=== PATIENT | female | born 1980 | race Caucasian/White ===

== ENCOUNTER → 2017-05-13 | Outpatient (CLI) | payer BC, OTHER ==
[~2017-05-13] MED LIST: ALPR0.5T PO; CIPR-225 PO; IBUP-15 PO; LACT1CAP64 PO; OMEP20CA12 PO; ONDA4TAB8 PO; OXYC-197 PO; SERT25TA PO; SUCR1TAB36 PO
--- NOTE | 2017-05-13 08:29 | Diagnostic Imaging Report ---
Bilateral screening mammogram 2D views with tomosynthesis The current study was also evaluated with a Computer Aided Detection (CAD) system. INDICATION: Screening. No current complaints stated on the questionnaire. COMPARISON: 03/24/15 FINDINGS: The breasts are composed of scattered fibroglandular densities. There are no masses, architectural distortion or suspicious cluster of calcification. IMPRESSION: No mammographic evidence of malignancy and no change from the previous. Ultrasound evaluation pending. ACR BI-RADS Category 0: Incomplete. (Needs additional imaging evaluation). Result letter will be mailed to the patient. Note: At least 10% of breast cancer is not imaged by mammography. Dictated by: Dictated on workstation # [id number]
--- NOTE | 2017-05-13 09:13 | Diagnostic Imaging Report ---
EXAMINATION: Bilateral breast ultrasound. INDICATION: Bilateral breast pain and lumpiness. FINDINGS: The breasts were scanned with the retroareolar area and 4 quadrants of each breast evaluated. Areas of lumpiness are not associated with a specific abnormality with no focal lesion identified in either breast. In the left axilla, there is a lymph node with a fatty hilum measuring 2.1 cm with a thin cortex, suggestive of benign etiology. IMPRESSION: No suspicious abnormality. Clinical followup of areas of pain and lumpiness would be recommended. ACR BI-RADS Category 2: Benign findings. Dictated by: Dictated on workstation # [id number]
== END ==
LOC: RAD 07:52
PROVIDERS: ATTEND Nurse Practitioner Family
DX: N64.4 Mastodynia (principal)
CPT/HCPCS: 77066

== ENCOUNTER → 2018-04-14 | Outpatient (CLI) | payer BC, OTHER ==
[~2018-04-14] MED LIST changes: -IBUP-15 PO; +IBUP-16 PO
--- NOTE | 2018-04-14 14:30 | Diagnostic Imaging Report ---
INDICATION: Bilateral breast lumps. COMPARISON: 05/13/2017 and 03/24/2015. TECHNIQUE: 2D and 3D bilateral diagnostic mammography was performed including CC, MLO, and ML views. BB markers were placed at the areas of palpable abnormality in both breasts and left axilla. FINDINGS: Scattered fibroglandular densities are identified bilaterally. No mass is identified. No malignant-appearing microcalcifications are seen. The axillae demonstrate fatty lymph nodes. IMPRESSION: No mammographic features suspicious for malignancy are identified. Even so, directed sonographic interrogation of the areas of palpable abnormality in both breasts and left axilla are recommended and will be performed today. ACR BI-RADS Category 0: Incomplete. (Needs additional imaging evaluation). Result letter will be mailed to the patient. Note: At least 10% of breast cancer is not imaged by mammography. Dictated by: Dictated on workstation # [id number]
--- NOTE | 2018-04-14 19:52 | Diagnostic Imaging Report ---
INDICATION: Bilateral breast lumps. COMPARISON: Correlation is made with prior breast ultrasound from 05/13/2017. TECHNIQUE: Sonographic interrogation of all four quadrants and retroareolar regions of bilateral breasts as well as the left axilla and right axilla was performed. FINDINGS: LEFT BREAST: Areas of interest included inferior as well as lower and inner left breast. In addition, left axilla was an area of interest. Only sonographic finding is a lymph node in the left axilla, approximately 2 cm x 1 cm, similar to prior ultrasound. No other masses on the left are identified. RIGHT BREAST: Right axillary lymph node measures 1.8 x 1.2 cm. No other abnormality is seen. Areas of interest in the lower and lower-outer right breast were evaluated and unremarkable. IMPRESSION: Bilateral axillary lymph nodes. Study is otherwise unremarkable. Continued close clinical and self-breast exam is recommended to confirm stability of the areas of palpable abnormality. ACR BI-RADS Category 2: Benign findings. Dictated by: Dictated on workstation # [id number]
== END ==
LOC: RAD 13:54
PROVIDERS: ATTEND Nurse Practitioner Family
DX: N60.22 Fibroadenosis of left breast (principal); N60.11 Diffuse cystic mastopathy of right breast
CPT/HCPCS: 76642; 77066

== ENCOUNTER → 2019-06-25 | Outpatient (CLI) | payer BC, OTHER ==
[~2019-06-25] MED LIST changes: -OMEP20CA12 PO; +OMEP20CA13 PO; -OXYC-197 PO; +OXYC1TAB87 PO
--- NOTE | 2019-06-26 11:24 | Diagnostic Imaging Report ---
Indication: Routine screening. Comparison is made with prior mammogram from 04/14/2018 and 05/13/2017. 2-D and 3-D bilateral screening mammography was performed with CAD. Scattered fibroglandular densities are identified bilaterally. The parenchymal pattern appears stable. No mass or malignant-appearing microcalcifications are seen. The axillae are unremarkable. IMPRESSION: BI-RADS Category 1. No mammographic features suspicious for malignancy are identified. ACR BI-RADS Category 1: Negative. Result letter will be mailed to the patient. Note: At least 10% of breast cancer is not imaged by mammography. Dictated by: Dictated on workstation # [id number]
== END ==
LOC: RAD 15:29
PROVIDERS: ATTEND Obstetrics & Gynecology
DX: Z12.31 Encounter for screening mammogram for malignant neoplasm of breast (principal)
CPT/HCPCS: 77067

== ENCOUNTER 2019-12-16 08:29 | Emergency (ER) | payer OTHER ==
[~2019-12-16] VITALS: Ht 160 cm; Wt 68.0 kg
[~2019-12-16 08:29] MED LIST changes: -OMEP20CA13 PO; +OMEP20CA18 PO
--- NOTE | 2019-12-16 09:02 | ED General ---
General Chief Complaint: General Problems/Pain Stated Complaint: HEADACHE;NECK PAIN Nursing Triage Note: ARRIVED VIA AMB TO ROOM 08 WITH MULTIPLE COMPLAINTS INCLUDING HEADACHE, STIFF NECK, BODY AND JOINT ACHES, AND SORE THROAT. PT STATES SHE WAS A [facility] YESTERDAY BUT LEFT DUE TO THE LONG WAIT. Nursing Sepsis Screen: No Definite Risk Source of Information: Patient Exam Limitations: No Limitations History of Present Illness Date Seen by Provider: Dec 16, 2019 Time Seen by Provider: 09:02 Initial Comments 39-year-old female presents with rash, sore throat, body and joint aches, swollen lymph nodes, stiff neck due to swollen lymph nodes, fever. Patient reports that the symptoms started 2 days ago. She was seen in urgent care and diagnosed with strep and started on amoxicillin. Patient reports that she went to [place] yesterday but left because of the long wait. Patient reports a coworker had both influenza and strep that she was exposed to. Patient is wanting immediate release and immediate answers to what is causing the symptoms. Patient reports that they did not run a strep test at urgent care they just started her on amoxicillin. Patient does report that the rashes been improving since she started amoxicillin. Allergies and Home Medications Allergies Coded Allergies: No Known Drug Allergies (Unverified , 05/22/15) Home Medications Alprazolam 0.5 Mg Tablet, 0.5 MG PO HS, (Reported) Ciprofloxacin HCl 500 Mg Tablet, 500 MG PO DAILY, (Reported) CURRENTLY TAKING FOR UTI- 2 PILLS LEFT Ibuprofen 200 Mg Tablet, 800 MG PO Q6H Prescribed by: EUSEBIA PENA on 05/24/15 1333 Lactobacillus Combo No.11 1 Each Cap.sprink, 2 CAP PO DAILY, (Reported) Omeprazole 20 Mg Capsule.dr, 20 MG PO BID, (Reported) Ondansetron 4 Mg Tab.rapdis, 4 MG PO Q6H PRN for NAUSEA Prescribed by: KAYLAN CALLES on 05/24/15 1546 Oxycodone HCl/Acetaminophen 1 Each Tablet, 2 EACH PO Q4H Prescribed by: EUSEBIA PENA on 05/24/15 1331 Sertraline HCl 25 Mg Tablet, 25 MG PO DAILY, (Reported) Sucralfate 1 Gm Tablet, 1 GM PO PC, (Reported) Patient Home Medication List Home Medication List Reviewed: Yes Review of Systems Review of Systems Constitutional: chills, malaise Respiratory: No cough, No short of breath Cardiovascular: No chest pain Gastrointestinal: No nausea, No vomiting Musculoskeletal: see HPI Skin: rash Psychiatric/Neurological: No Symptoms Reported Past Pxrhamz-Xmgvku-Odicfe Hx Past Med/Social Hx: Reviewed Nursing Past Med/Soc Hx Patient Social History Alcohol Use: Rarely Uses Recreational Drug Use: No Smoking Status: Current Everyday Smoker Recent Foreign Travel: No Contact w/Someone Who Travel: No Recent Infectious Disease Expo: No Immunizations Up To Date Tetanus Booster (TDap): Less than 5yrs Date of Influenza Vaccine: Jul 14, 2014 Past Medical History Surgeries: Yes (2 DNC'S, EGD- MAY 26, TENDON REPAIR IN [place]-1989) Respiratory: No Cardiac: Yes Neurological: No Reproductive Disorders: No Genitourinary: No Gastrointestinal: Yes (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) Gastroesophageal Reflux, Ulcer, Gall Bladder Disease Musculoskeletal: Yes (2 BULGING DISC ) Degenerate Disk Disease Endocrine: No HEENT: No Tinnitis Cancer: No Psychosocial: Yes Anxiety, Depression Integumentary: Yes (3 MONTHS AGO- SHINGLES) Blood Disorders: No Family Medical History Anxiety disorder 19 MOTHER Arthritis 19 MOTHER Diabetes mellitus 19 FATHER FH: diverticulitis 19 MOTHER FH: pancreatic cancer 19 FATHER Psychosocial problem G8 BROTHER Physical Exam Vital Signs Vital Signs - First Documented 12/16/19 08:35 Temp 36.7 Pulse 112 Resp 16 B/P (MAP) 145/106 (119) Pulse Ox 99 O2 Delivery Room Air Capillary Refill : Less Than 3 Seconds Height, Weight, BMI Height: 5'4.00" Weight: 193lbs. oz. 87.649350ye; 26.00 BMI Method:Stated General Appearance: No Apparent Distress, WD/WN HEENT: Pharyngeal Erythema Neck: Supple, Lymphadenopathy (L), Lymphadenopathy (R), Other (patient with symptoms consistent with neck tenderness due to lymphadenopathy. She is negative for meningeal signs) Respiratory: Lungs Clear, Normal Breath Sounds Cardiovascular: Regular Rate, Rhythm, No Edema Gastrointestinal: Non Tender, Soft Extremity: Normal Capillary Refill, Normal Inspection Neurologic/Psychiatric: Alert, Oriented x3, Normal Mood/Affect, product promoter retail pet II-XII Norm as Tested Skin: Rash Lymphatic: No Adenopathy Progress/Results/Core Measures Suspected Sepsis Recent Fever Within 48 Hours: No Infection Criteria Present: Suspected New Infection New/Unexplained Altered Menta: No Sepsis Screen: No Definite Risk SIRS Temperature: Pulse: 112 Respiratory Rate: 16 Blood Pressure 145 /106 Mean: 119 Results/Orders Micro Results Microbiology 12/16/19 Influenza Types A,B Antigen (JACLYN) - Final, Complete My Orders Orders - NICOLÁS SPANGLER DO Influenza A And B Antigens (12/16/19 09:02) Dexamethasone Injection (Decadron Inject (12/16/19 09:15) Medications Given in ED Current Medications Medications Dose Ordered Sig/Meli Route Start Time Stop Time Status Last Admin Dose Admin Dexamethasone Sodium Phosphate 10 mg ONCE ONCE PO 12/16/19 09:15 12/16/19 09:16 DC 12/16/19 09:33 10 MG Vital Signs/I&O 12/16/19 12/16/19 08:35 10:22 Temp 36.7 36.7 Pulse 112 93 Resp 16 16 B/P (MAP) 145/106 (119) 115/86 Pulse Ox 99 96 O2 Delivery Room Air Room Air Capillary Refill : Less Than 3 Seconds Blood Pressure Mean: 119 Progress Note : Time: 10:06 Progress Note Patient symptoms are still consistent with strep. She was negative for infl uenza. Patient is already on amoxicillin. Her rash did improve while she was here in the ER. This discussed with her that she is likely able to back to work [employer] as long is fever free for 24 hours. Patient is stable will be discharged home. Departure Impression Primary Impression: Pharyngitis, acute Qualified Codes: J02.9 - Acute pharyngitis, unspecified Disposition: 01 HOME, SELF-CARE Condition: Stable Departure-Patient Inst. Referrals: SYDNEY CLARKE APRN (PCP/Family) Primary Care Physician Patient Instructions: Strep Throat (DC), Sore Throat in Adults, Viral Pharyngitis (DC) Add. Discharge Instructions: Emergency department focuses on treating and ruling out life-threatening diseases. Whenever possible, a diagnosis is given. However, most patients are given an impression based on their history, physical exam, and workup during your brief time in the ER. Information about probable diagnosis and other educational material has been provided. Please take the time to read and understand this information. It is very important that you follow up with a physician as discussed during the visit today. Failure to adhere to your follow-up instructions may lead to severe disability, injury, or so please make sure to keep your appointments or obtain one as requested. Please keep in mind the emergency department is not designed to your primary care or "family doctor" and nonurgent issues are best evaluated by an outpatient physician All discharge instructions reviewed with patient and/or family. Voiced understanding. Work/School Note: Work Release Form Date Seen in the Emergency Department: Dec 16, 2019 Return to Work: Dec 17, 2019 NICOLÁS SPANGLER DO Dec 16, 2019 09:02
[2019-12-16] MEDS ORDERED: DEXAMETHASONE 10 MG/ML (DECADRON) 1 ML VIAL PO ONE (09:15)
[2019-12-16 10:22] VITALS: BP 115/86
== END 2019-12-16 10:22 | disposition home or self-care (01) ==
LOC: EDUNIT# 08:29 → ER 08:30
DX: J02.9 Acute pharyngitis, unspecified (principal); K21.9 Gastro-esophageal reflux disease without esophagitis; F41.9 Anxiety disorder, unspecified; F32.9 Major depressive disorder, single episode, unspecified; F17.200 Nicotine dependence, unspecified, uncomplicated; Z80.0 Family history of malignant neoplasm of digestive organs
CPT/HCPCS: 84703; 87804

== ENCOUNTER 2022-12-20 09:08 | Emergency (ER) | payer BC, OTHER ==
[~2022-12-20] VITALS: Ht 162 cm; Wt 93.0 kg
[2022-12-20 09:20] VITALS: BP 140/94
[2022-12-20] MEDS ORDERED: KETOROLAC 30 MG/ML VIAL IVP STA (09:40)
--- NOTE | 2022-12-20 09:44 | ED Abdominal Pain ---
General Chief Complaint: Abdominal/GI Problems Stated Complaint: LOWER ABD PAIN | BLOOD IN URINE Nursing Triage Note: PT STATES URINARY ISSUES, LOW TO MID ABD PAIN, 2ND TIME IN ABOUT 90 DAYS, FEELS LIKE A UTI. WOKE HER UP IN THE NIGHT, VISIUAL BLOOD IN URINE, HEAT WAVE IN HER HEAD, CHILLS AND WEAKNESS, Source of Information: Patient Exam Limitations: No Limitations History of Present Illness Date Seen by Provider: Dec 20, 2022 Time Seen by Provider: 09:30 Initial Comments Here with lower abdominal pain to the mid abdominal pain and overall does not feel well. Feels hot and cold and and has chills feels weakness. Denies nausea or vomiting. States pain is 5 out of 10 to the mid lower abdomen. Had something similar a month ago and was started on antibiotics and given Diflucan for presumptive UTI and yeast infection. Things were better until yesterday when she started having the symptoms again. She is concerned that she has some other significant problem in the abdomen. Denies flank pain at this point. Timing/Duration: 1-2 Days Severity/Quality: Moderate, Aching Location: Periumbilical, Suprapubic Radiation: No Radiation Activities at Onset: None Modifying Factors: Worsens With Urinating Associated Symptoms: No Back Pain, No Chest Pain, No Diaphoresis; Fever/Chills; No Nausea/Vomiting; Weakness Allergies and Home Medications Allergies Coded Allergies: No Known Drug Allergies (Unverified , 05/22/15) Patient Home Medication List Home Medication List Reviewed: Yes Alprazolam (Xanax) 0.5 Mg Tablet, 0.5 MG PO HS, (Reported) Entered as Reported by: ALICIA LUIS on 05/23/156 Ciprofloxacin HCl (Cipro) 500 Mg Tablet, 500 MG PO DAILY, (Reported) Entered as Reported by: ALICIA LUIS on 05/23/156 Ibuprofen (Motrin Ib) 200 Mg Tablet, 800 MG PO Q6H Prescribed by: EUSEBIA PENA on 05/24/15 1333 Lactobacillus Combo No.11 (Probiotic) 1 Each Cap.sprink, 2 CAP PO DAILY, (Reported) Entered as Reported by: PATRICK DODD on 05/23/15 1135 Omeprazole (Omeprazole) 20 Mg Capsule.dr, 20 MG PO BID, (Reported) Entered as Reported by: ALICIA LUIS on 05/23/156 Ondansetron (Zofran Odt) 4 Mg Tab.rapdis, 4 MG PO Q6H PRN for NAUSEA Prescribed by: KAYLAN CALLES on 05/24/15 154 Oxycodone HCl/Acetaminophen (Percocet 5-325 mg Tablet) 1 Each Tablet, 2 EACH PO Q4H Prescribed by: EUSEBIA PENA on 05/24/15 1331 Sertraline HCl (Zoloft) 25 Mg Tablet, 25 MG PO DAILY, (Reported) Entered as Reported by: ALICIA LUIS on 05/23/156 Sucralfate (Carafate) 1 Gm Tablet, 1 GM PO PC, (Reported) Entered as Reported by: ALICIA LUIS on 05/23/156 Review of Systems Review of Systems Constitutional: see HPI EENTM: No Symptoms Reported Respiratory: Denies Cough, Denies SOA at Rest Cardiovascular: Denies Chest Pain, Denies Edema Gastrointestinal: Denies Diarrhea, Denies Vomiting Genitourinary: Hematuria, Pain Musculoskeletal: No back pain, No muscle pain Skin: no symptoms reported Psychiatric/Neurological: No Symptoms Reported Past Ilyepgr-Idqzco-Rbngic Hx Patient Social History Tobacco Use?: Yes Smoking Status: Former Smoker Use of E-Cig and/or Vaping dev: Yes E-Cig or Vaping type used: Nicotine Substance use?: No Alcohol Use?: Yes Alcohol type: Wine Alcohol Frequency: Rarely Immunizations Up To Date Tetanus Booster (TDap): Less than 5yrs Third COVID19 Vaccination Date: YES Past Medical History Surgery/Hospitalization HX: HTN, DEGENERATIVE DISK, LT SHOULDER, LAP STANTON, PARTIAL HYST, LT FOOT, C SECTION X'S2, ANXIETY, DEPRESSION, PTSD Surgeries: Yes (2 DNC'S, EGD- MAY 27, TENDON REPAIR IN [place]-1989) Respiratory: No Cardiac: Yes Neurological: No Reproductive Disorders: No Genitourinary: No Gastrointestinal: Yes (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) Gastroesophageal Reflux, Ulcer, Gall Bladder Disease Musculoskeletal: Yes (2 BULGING DISC ) Degenerate Disk Disease Endocrine: No HEENT: No Tinnitis Cancer: No Psychosocial: Yes Anxiety, Depression Integumentary: Yes (3 MONTHS AGO- SHINGLES) Blood Disorders: No Family Medical History Reviewed Nursing Family Hx Anxiety disorder 19 MOTHER Arthritis 19 MOTHER Diabetes mellitus 19 FATHER FH: diverticulitis 19 MOTHER FH: pancreatic cancer 19 FATHER Psychosocial problem G8 BROTHER Physical Exam Vital Signs Vital Signs - First Documented 12/20/22 09:20 Temp 36.0 Pulse 102 Resp 20 B/P (MAP) 140/94 (109) Pulse Ox 97 O2 Delivery Room Air Capillary Refill : Less Than 3 Seconds Height/Weight/BMI Height: 5'4.00" Weight: 193lbs. oz. 87.524225cr; 35.00 BMI Method:Stated General Appearance: WD/WN, no apparent distress, obese HEENT: PERRL/EOMI, pharynx normal Neck: full range of motion, supple Respiratory: lungs clear, normal breath sounds Cardiovascular: regular rate, rhythm, no murmur Gastrointestinal: soft, tenderness (Mild tenderness suprapubic and periumbilical without rebound or guarding) Extremities: non-tender, normal inspection Back: normal inspection, no CVA tenderness, no vertebral tenderness Neurologic/Psychiatric: alert, oriented x 3 Skin: normal color, warm/dry Progress/Results/Core Measures Results/Orders Lab Results Laboratory Tests Test 12/20/22 09:24 Range/Units White Blood Count 12.7 H 4.3-11.0 10^3/uL Red Blood Count 4.81 3.80-5.11 10^6/uL Hemoglobin 15.2 11.5-16.0 g/dL Hematocrit 44 35-52 % Mean Corpuscular Volume 91 80-99 fL Mean Corpuscular Hemoglobin 32 25-34 pg Mean Corpuscular Hemoglobin Concent 35 32-36 g/dL Red Cell Distribution Width 12.8 10.0-14.5 % Platelet Count 257 130-400 10^3/uL Mean Platelet Volume 8.8 L 9.0-12.2 fL Immature Granulocyte % (Auto) 0 % Neutrophils (%) (Auto) 77 H 42-75 % Lymphocytes (%) (Auto) 18 12-44 % Monocytes (%) (Auto) 4 0-12 % Eosinophils (%) (Auto) 1 0-10 % Basophils (%) (Auto) 0 0-10 % Neutrophils # (Auto) 9.8 H 1.8-7.8 10^3/uL Lymphocytes # (Auto) 2.3 1.0-4.0 10^3/uL Monocytes # (Auto) 0.5 0.0-1.0 10^3/uL Eosinophils # (Auto) 0.1 0.0-0.3 10^3/uL Basophils # (Auto) 0.0 0.0-0.1 10^3/uL Immature Granulocyte # (Auto) 0.1 0.0-0.1 10^3/uL Urine Color ORANGE Urine Clarity CLEAR Urine pH 6.0 5-9 Urine Specific [place] <=1.005 1.016-1.022 Urine Protein NEGATIVE NEGATIVE Urine Glucose (UA) TRACE H NEGATIVE Urine Ketones NEGATIVE NEGATIVE Urine Nitrite POSITIVE H NEGATIVE Urine Bilirubin NEGATIVE NEGATIVE Urine Urobilinogen 0.2 < = 1.0 MG/DL Urine Leukocyte Esterase 1+ H NEGATIVE Urine RBC (Auto) TRACE-I H NEGATIVE Urine RBC 0-2 /HPF Urine WBC 10-25 H /HPF Urine Squamous Epithelial Cells RARE /HPF Urine Crystals NONE /LPF Urine Bacteria MODERATE H /HPF Urine Casts NONE /LPF Urine Mucus NEGATIVE /LPF Urine Culture Indicated NO Sodium Level 141 135-145 MMOL/L Potassium Level 3.7 3.6-5.0 MMOL/L Chloride Level 107 98-107 MMOL/L Carbon Dioxide Level 25 21-32 MMOL/L Anion Gap 9 5-14 MMOL/L Blood Urea Nitrogen 15 7-18 MG/DL Creatinine 1.08 0.60-1.30 MG/DL Estimat Glomerular Filtration Rate 65 BUN/Creatinine Ratio 14 Glucose Level 104 70-105 MG/DL Calcium Level 9.2 8.5-10.1 MG/DL Corrected Calcium 8.9 8.5-10.1 MG/DL Total Bilirubin 0.4 0.1-1.0 MG/DL Aspartate Amino Transf (AST/SGOT) 17 5-34 U/L Alanine Aminotransferase (ALT/SGPT) 38 0-55 U/L Alkaline Phosphatase 70 40-136 U/L C-Reactive Protein High Sensitivity 1.25 H 0.00-0.50 MG/DL Total Protein 7.3 6.4-8.2 GM/DL Albumin 4.4 3.2-4.5 GM/DL My Orders Orders - SHRUTHI DALLAS MD Cbc With Automated Diff (12/20/22 09:40) Comprehensive Metabolic Panel (12/20/22 09:40) Hs C Reactive Protein (12/20/22 09:40) Ua Culture If Indicated (12/20/22 09:40) Ed Iv/Invasive Line Start (12/20/22 09:40) Ns Iv 1000 Ml (Sodium Chloride 0.9%) (12/20/22 09:45) Ketorolac Injection (Toradol Injection) (12/20/22 09:40) Ct Abdomen/Pelvis W (12/20/22 10:23) Iohexol Injection (Omnipaque 350 Mg/Ml 1 (12/20/22 10:30) Ns (Ivpb) (Sodium Chloride 0.9% Ivpb Bag (12/20/22 10:30) Ceftriaxone 1 Gram Iv (12/20/22 11:43) Medications Given in ED Current Medications Medications Dose Ordered Sig/Meli Route Start Time Stop Time Status Last Admin Dose Admin Iohexol 100 ml ONCE ONCE IV 12/20/22 10:30 12/20/22 10:31 DC 12/20/22 10:51 80 ML Sodium Chloride 100 ml ONCE ONCE IV 12/20/22 10:30 12/20/22 10:31 DC 12/20/22 10:51 80 ML Sodium Chloride 1,000 ml @ 0 mls/hr Q0M ONCE IV 12/20/22 09:45 12/20/22 09:46 DC 12/20/22 09:50 999 MLS/HR Vital Signs/I&O 12/20/22 09:20 Temp 36.0 Pulse 102 Resp 20 B/P (MAP) 140/94 (109) Pulse Ox 97 O2 Delivery Room Air Blood Pressure Mean: 109 Progress Progress Note : Progress Note Seen and evaluated. IV, labs, UA, normal saline 1 L bolus and Toradol 30 mg IV ordered. Labs include CBC, CMP and CRP. Monitor patient. Differential diagnosis includes UTI, urinary stone, intra-abdominal pathology 1027: UA is nitrite positive. White count is elevated. We will evaluate further for intra-abdominal pathology with CT abdomen pelvis with contrast as there is no blood in the urine currently. This will help also elucidate if there is pyelonephritis. Monitor patient. CMP reviewed and shows normal electrolytes with normal serum creatinine. 1140: CT results noted. Patient does have concerns for cystitis and possible previously passed stone. There is also concern about possible infection to the ureter. Given that we will go ahead and initiate Rocephin 1 g IV now to prevent pyelonephritis and continue outpatient antibiotics. This was discussed with the patient who agrees. Discharged home after antibiotic administration. Patient verbalized understanding of instructions and agreement with plan. Diagnostic Imaging Diagonstic Imaging: CT Plain Films/CT/US/NM/MRI: abdomen, pelvis Comments [facility] [employer] [facility] [place], [place] NAME: FREDRICK DUNN [facility] REC#: [id number] PT STATUS: REG ER : 1980 PHYSICIAN: SHRUTHI DALLAS MD ADMIT DATE: 12/20/22/ER Draft Date of Exam:12/20/22 CT ABDOMEN/PELVIS W INDICATION: Abdominal pain, chills and weakness, history of UTIs. TECHNIQUE: Multiple contiguous axial images were obtained through the abdomen and pelvis after administration of intravenous contrast. Auto Exposure Controls were utilized during the CT exam to meet ALARA standards for radiation dose reduction. All CT scans use one or more of the following dose optimizing techniques: automated exposure control, MA and/or KvP adjustment based on patient size and exam type or iterative reconstruction. COMPARISON: Comparison made with 05/22/2015. FINDINGS: The visualized portion of the lung bases are clear. There were no pleural fluid collections. There is no free intraperitoneal air. The liver shows no focal lesion. Patient has had prior cholecystectomy. The spleen and adrenals and pancreas are normal. There is no renal stone or renal mass. There appears to be diffuse thickening of the right ureter with mild dilatation, without obvious stone. This can be seen with an infectious process or recently passed stone. There is no retroperitoneal mass or adenopathy. There is no ascites or abnormal fluid collection. Visualized bowel loops are unremarkable. There is a left adnexal cyst measuring about 2.9 cm. The urinary bladder appears diffusely thickened, although this may be artifactual due to underdistention. IMPRESSION: The urinary bladder appears thickened, this may be artifactual due to underdistention but cystitis cannot be excluded. There is diffuse mild prominence and enhancement of the right ureter, which may represent an infectious process or recently passed stone. No stone is visualized at this time. There is evidence of previous cholecystectomy. There is a left adnexal cyst, as above. Dictated on workstation # [id number] Dict: 12/20/22 1050 Trans: 12/20/22 1100 [id number] Interpreted by: SARAH GRANADO MD Electronically signed by: Departure Impression Primary Impression: Urinary tract infection Qualified Codes: N30.01 - Acute cystitis with hematuria Disposition: HOME, SELF-CARE Condition: Stable Departure-Patient Inst. Decision time for Depature: 11:46 Referrals: ASH CRONIN (PCP/Family) Primary Care Physician Patient Instructions: Urinary Tract Infections in Adults, Kidney Infection (DC) Add. Discharge Instructions: All discharge instructions reviewed with patient and/or family. Voiced understanding. Take medications as directed. Follow-up with your doctor for recheck and further evaluation. You may take Tylenol/acetaminophen 1000 mg every 6-8 hours as needed for fever or pain. You may take ibuprofen 600 mg every 8 hours as needed for fever or pain. Drink plenty of fluids. Return for worse pain, weakness, fever, vomiting or other concerns as needed. Scripts Cephalexin (Cephalexin) 500 Mg Capsule 500 MG PO BID for 7 Days, #14 CAP 0 Refills Prov: SHRUTHI DALLAS MD 12/20/22 Work/School Note: Work Release Form Date Seen in the Emergency Department: Dec 20, 2022 Return to Work: Dec 21, 2022 Restrictions: No Restrictions SHRUTHI DALLAS MD Dec 20, 2022 09:44
[2022-12-20] MEDS ORDERED: NS IV 1000 ML 1,000 ML IV ONE (09:45)
[2022-12-20 09:46] LABS: BILIRUBIN,URINE NEGATIVE (NEGATIVE); CLARITY,URINE CLEAR; COLOR,URINE ORANGE; GLUCOSE, URINE (UA) TRACE (NEGATIVE); KETONES,URINE NEGATIVE (NEGATIVE); LEUKOCYTE ESTERASE ,URINE 1+ (NEGATIVE); NITRITE,URINE POSITIVE (NEGATIVE); PROTEIN,URINE NEGATIVE (NEGATIVE)
[2022-12-20 09:47] LABS: BASOPHILS % (AUTO) 0 % (0-10); EOSINOPHILS # (AUTO) 0.1 10^3/uL (0.0-0.3); EOSINOPHILS % (AUTO) 1 % (0-10); HEMATOCRIT 44 % (35-52); HEMOGLOBIN 15.2 g/dL (11.5-16.0); LYMPHOCYTES # (AUTO) 2.3 10^3/uL (1.0-4.0); LYMPHOCYTES % (AUTO) 18 % (12-44); MEAN CORPUSCULAR HEMOGLOBIN 32 pg (25-34); MEAN CORPUSCULAR HGB CONC 35 g/dL (32-36); MEAN CORPUSCULAR VOLUME 91 fL (80-99); MEAN PLATELET VOLUME 8.8 fL (9.0-12.2); MONOCYTES # (AUTO) 0.5 10^3/uL (0.0-1.0); MONOCYTES % (AUTO) 4 % (0-12); NEUTROPHILS # (AUTO) 9.8 10^3/uL (1.8-7.8); NEUTROPHILS % (AUTO) 77 % (42-75); PLATELET COUNT 257 10^3/uL (130-400); WHITE BLOOD COUNT 12.7 10^3/uL (4.3-11.0)
[2022-12-20 09:48] LABS: ALBUMIN 4.4 GM/DL (3.2-4.5); POTASSIUM 3.7 MMOL/L (3.6-5.0)
[2022-12-20 09:49] LABS: CALCIUM 9.2 MG/DL (8.5-10.1)
[2022-12-20 09:51] LABS: TOTAL PROTEIN 7.3 GM/DL (6.4-8.2)
[2022-12-20 09:52] LABS: BILIRUBIN,TOTAL 0.4 MG/DL (0.1-1.0)
[2022-12-20 09:54] LABS: CREATININE SERUM 1.08 MG/DL (0.60-1.30)
[2022-12-20 10:07] LABS: BACTERIA,URINE MODERATE /HPF; RBC,URINE 0-2 /HPF; SQUAMOUS EPITHELIAL CELL,UR RARE /HPF
[2022-12-20] MEDS ORDERED: IOHEXOL 350 MG/ML 100 ML (OMNIPAQUE 350) VIAL IV ONE (10:30)
[2022-12-20] MEDS ORDERED: NS 100 ML (IVPB) BAG IV ONE (10:30)
--- NOTE | 2022-12-20 11:01 | Diagnostic Imaging Report ---
INDICATION: Abdominal pain, chills and weakness, history of UTIs. TECHNIQUE: Multiple contiguous axial images were obtained through the abdomen and pelvis after administration of intravenous contrast. Auto Exposure Controls were utilized during the CT exam to meet ALARA standards for radiation dose reduction. All CT scans use one or more of the following dose optimizing techniques: automated exposure control, MA and/or KvP adjustment based on patient size and exam type or iterative reconstruction. COMPARISON: Comparison made with 05/22/2015. FINDINGS: The visualized portion of the lung bases are clear. There were no pleural fluid collections. There is no free intraperitoneal air. The liver shows no focal lesion. Patient has had prior cholecystectomy. The spleen and adrenals and pancreas are normal. There is no renal stone or renal mass. There appears to be diffuse thickening of the right ureter with mild dilatation, without obvious stone. This can be seen with an infectious process or recently passed stone. There is no retroperitoneal mass or adenopathy. There is no ascites or abnormal fluid collection. Visualized bowel loops are unremarkable. There is a left adnexal cyst measuring about 2.9 cm. The urinary bladder appears diffusely thickened, although this may be artifactual due to underdistention. IMPRESSION: The urinary bladder appears thickened, this may be artifactual due to underdistention but cystitis cannot be excluded. There is diffuse mild prominence and enhancement of the right ureter, which may represent an infectious process or recently passed stone. No stone is visualized at this time. There is evidence of previous cholecystectomy. There is a left adnexal cyst, as above. Dictated by: Dictated on workstation # [id number]
[2022-12-20] MEDS ORDERED: cefTRIAXone 1 GM PRE-MIX 50 ML IV STA (11:43)
[2022-12-20] MEDS ORDERED: CEPH500C PO (11:47)
== END 2022-12-20 12:31 | disposition home or self-care (01) ==
LOC: EDUNIT# 09:08 → ER 09:11
DX: N39.0 Urinary tract infection, site not specified (principal); Z87.891 Personal history of nicotine dependence; Z87.19 Personal history of other diseases of the digestive system
CPT/HCPCS: 36415; 74177; 80053; 81000; 85025; 86141